=== PATIENT | male | born 1985 | race Caucasian/White ===

== ENCOUNTER 2025-04-30 13:50 | Observation (INO) | payer OTHER, SELFPAY ==
[2025-04-30] VITALS (14 sets, daily range): BP systolic 121–199; BP diastolic 73–128; BMI 46.4; BMI 44.8
--- NOTE | 2025-04-30 10:49 | ED.GENMED ---
History of Present Illness
General
Chief Complaint: Change in Mental Status
Time Seen by Provider: 04/30/25 10:39
Nursing documentation reviewed up to this point in time: agreed with
History of Present Illness
History of Present Illness:
39-year-old male presents to the ER for evaluation of weakness and visual disturbance which started 1 hour ago. Patient states that when he awakened this morning he felt a little bit off but was able to walk without any difficulty. He had no
headache. He states that while he was at work he started to notice blurred vision affecting his left eye. He also has a feeling of disorientation when he looks around or tries to move. He noted some weakness in his left hand. No reported recent
syncope or trauma. He is not on any blood thinners. He denies any prior history of CVA. He denies diplopia. He denies any recent illness. Patient's reports that he underwent chiropractic manipulation last night
Past History
Past History
ED Past Medical History: Hypothyroidism
ED Past Surgical History: Orthopedic
Social History
Tobacco: Former smoker
Alcohol: None
Drug: None
Personal:
Living: with family
Employment: Employed
Family History
Family History: Other (Noncontributory); Negative CAD or Sudden
Phy Exam
Physical Exam
Physical Exam:
Patient is awake, alert, obese, appears in no acute distress, mucous membranes moist, conjunctiva pink, head is normocephalic atraumatic, PERRL, EOMI, mucous membranes moist, tongue with mild right deviation, no facial asymmetry noted, patient noted
blurred vision in the left eye when looking leftward, no carotid bruits, heart regular rate and rhythm without murmurs recta, lungs are clear to auscultation without wheezes rales or rhonchi, abdomen soft nontender, extremities without edema, 2+ DP
pulses present symmetric bilateral feet, positive pronator drift on the left, difficulty with rapid alternating movements involving the left hand, no leg weakness appreciated, GCS is 15
Scores
NIH Stroke Score
Level of Consciousness: 0 - Alert
LOC Questions: 0-Answers both correctly
LOC Commands: 0-Performs both correctly
Best Horizontal Gaze: 0-Normal
Visual Duarte: 0=Normal, no visual loss
Facial Palsy: 0=Normal, symmetrical
Motor - Right Arm: 0=No drift 10 seconds
Motor - Left Arm: 1=Drift < 10 seconds
Motor - Right Le-No drift 5 seconds
Motor - Left Le-No drift 5 seconds
Limb Ataxia: 1-Present in one limb
Sensation: 0-Normal
Best Language: 1-Mild aphasia
Dysarthria: 0-Normal
Extinction and Inattention: 0-No abnormality
NIH Total Score:: 3
Course
Orders/Labs/Results
Orders:
Orders
04/30/25 Lunch
Regular
At Your Request: Full Participation
04/30/25 10:26
ECG [Electrocardiogram (*1)] Urgent
Reason for Study: Chest Pain
04/30/25 10:27
EKG- Treatment ONCE
04/30/25 10:44
CT BRAIN PERF STROKE ALERT Urgent
Comment:
Reason For Exam: L sided weakness
CT HEAD/NECK ANG STROKE ALERT Urgent
Comment:
Reason For Exam: l sided weakness, onset 1 hour ago
Bedside Glucose- Treatment ONCE
Cardiac Monitoring- Treatment ONCE
EKG- Treatment ONCE
IV Insert/Care/Rem.- Treatment PRN
0.9% Sodium Chloride 1000 ml [Nss] 1,000 ml IV BOLUS
Pulse Ox/cont/shift [RESP] Stat
Quantity: 1
04/30/25 10:46
Consult Neurology [NEUROLOGY CONSULT] Urgent
Consulting Provider: Ari Marquez
Was physician already notified: Yes
04/30/25 10:55
CT HEAD STROKE ALERT W/o Cont Stat
Comment:
Reason For Exam: dizziness
04/30/25 11:21
Ondansetron Injectable [Zofran] 4 mg IV NOW STA
04/30/25 11:22
Aspirin 325 mg PO NOW STA
04/30/25 11:26
Add On- LAB Routine
Tests Added?: lipid panel, hgb A1C, B12
Type+Screen Urgent
Alcohol Routine
Cardiovascular Evaluation Urgent
Comment: ADD ON
Complete Blood Count/With Diff Urgent
Comprehensive Metabolic Panel Urgent
Free T4 Urgent
Glycohemoglobin (HgbA1c) Urgent
LDL Cholesterol, Direct Urgent
PTT Urgent
Prothrombin Time Urgent
TSH Reflex To Free T4 Urgent
Troponin I Urgent
Vitamin B12 Urgent
Comment: ADD ON
04/30/25 11:49
ABO2 Urgent
BBK Wristband Number:
Associate notified that ABO2 has been ordered: [id number]
Date: 04/30/25
Time: 11:33
Creative Manager ID: [id number]
04/30/25 12:05
Urine Drug Abuse Screen Stat
Date Specimen was Collected: 04/30/25
Time Specimen was Collected: 12:03
04/30/25 13:24
Admit/Transfer Patient As Directed
Co-Sign Provider:
Level of Care: Observation services
Assign to:: Telemetry
Physician / Group: Hospitalist
Diagnosis: Dizziness, generalized weakness
Reason for Telemetry: Other
Other Reason for Telemetry: dizziness
Date to Stop Telemetry: 05/02/25
Time to Stop Telemetry: 11:00
Reason for Hospitalization: as above
PRN Pain Medication Management As Directed
May give lesser potent ordered pain med per pt: Yes
preference::
Protocol:: Medication orders for pain may be administered in a
manner that supports deferring to patient preference
when the pt is:
- Requesting an ordered lesser potent pain medication.
Least to most potent pain medications are defined
as: acetaminophen < NSAID < tramadol < opioids
(morphine, oxycodone, hydromorphone).
- Requesting a lesser dose of the same medication IF
ORDERED.
- Requesting a less intrusive route of administration
if both routes are prescribed by the provider (PO <
IV).
04/30/25 13:25
Code Status As Directed
Resuscitation Status: Full Code
04/30/25 13:31
MRI Brain [MR Brain W/o & With Contrast] Routine
Comment:
Reason For Exam: dizziness, generalized weakness.
Recent pill cam endoscopy?: No
04/30/25 13:50
Echo 2D MMode Color/Doppler Routine
Reason for Study: chest discomfort, chest tightness
05/02/25 11:00
DC Protocol for Telemetry ONCE
Abnormal Lab Results
04/30/25 04/30/25
10:49 11:26
Absolute Monos (auto) 0.8 H 10^3/uL
(0.1-0.6)
Triglycerides 466 H mg/dl
(10-149)
Total Cholesterol 216 H mg/dl
(50-199)
TSH (Reflex) 15.40 H uIU/ml
(0.47-4.68)
Free T4 0.59 L ng/dl
(0.78-2.19)
POC Glucose 102 H mg/dl
(70-99)
04/30/25 11:26
04/30/25 11:26
CBC, troponin and electrolytes without significant abnormality
Vital Signs
Initial and Last Documented VS:
Initial Vital Signs
Temp Pulse Resp BP Pulse Ox
98.8 F 66 17 121/84 99
04/30/25 10:32 04/30/25 10:32 04/30/25 10:32 04/30/25 10:32 04/30/25 10:32
Last Documented Vital Signs
Temp Pulse Resp BP Pulse Ox
98.8 F 67 15 146/98 99
04/30/25 10:32 04/30/25 14:30 04/30/25 14:30 04/30/25 14:00 04/30/25 10:56
Comment
Comment:
Stroke alert called at time of initial assessment. Labs and CT angio with perfusion are ordered. Neurology is present at bedside. Awaiting result
MDM/Problems Addressed
Differential Diagnosis Includes:
Differential diagnosis considered but not limited to stroke, intracranial hemorrhage, venous dural thrombosis, vertigo along with other etiologies considered
*Radiology
Radiology exam reviewed: radiology read reviewed (I reviewed no acute finding seen on noncontrast CT of the head with radiologist Jeanette)
*Pulse Oximetry
SaO2: 99
Oxygen Mode of Delivery: Room air
Patient hypoxic: no
*EKG
Interpreted by ED Provider?: Yes (I independently viewed and interpreted twelve-lead EKG showing normal sinus rhythm, rate 66, normal axis, normal intervals, this is a normal tracing, similar to prior from 06/09/2023)
*Medical Coding Manager Interpretation
Rate: normal (I independently reviewed rhythm strip showing normal sinus rhythm, no ectopy)
*Critical Care Note
Total Time (30-74mins, 75-104mins- exclusive of procedures): see critical care note
comment:
Critical care statement: A total of 30 minutes of critical care time was provided for this patient. This includes management of unstable vital signs, evaluation of the patient at bedside, reviewing the patient's pertinent medical records, discussion
with consultants, review of old EKGs and review of pertinent medical records. This time with separate from time utilized to perform the aforementioned documented procedures
Update Note
Update Note:
Patient was urgently evaluated by neurology, Dr Marquez. No acute findings seen on CTA or CTP- TNK not indicated. Aspirin and IV fluids ordered. Neurology recommendations were added into their consultation. I reviewed full patient presentation
with hospitalist to accept patient for admission
ED Attending Note
-
Portions of this chart may have been created with voice recognition software.� Occasional wrong word or��sound alike� substitutions may have occurred due to the inherent limitations of voice recognition software.
Discharge Plan
Departure
Patient Disposition: Admit
Date of Disposition: 04/30/25
Time of Disposition: 12:15
Presentation/result/management discussed w/ accepting MD/DO: Hospitalist
Discharge Problem:
Visual disturbance, Weakness
Interventions
Interventions:
*Risk Screen - Suicide Last Done: 04/30/25 10:34
*General Assessment Last Done: 04/30/25 10:34
*Neglect/Abuse Screening Last Done: 04/30/25 10:34
*ED COVID-19 Vaccine History Last Done: 04/30/25 10:34
ED- Pulmonary Assessment Last Done: 04/30/25 10:59
ED- Neurological Assessment Last Done: 04/30/25 10:56
ED- Cardiac Assessment Last Done: 04/30/25 11:14
ED Swallowing Screen Last Done: 04/30/25 11:40
--- NOTE | 2025-04-30 10:49 | CON.NEURO ---
Addendum entered and electronically signed by Ari Marquez MD 04/30/25 14:11:
Studies reviewed.
I have personally examined the patient. I reviewed and agree with the SHAVING MACHINE OPERATOR's Note.
My addenda:
Awake, alert, interactive. No acute distress.
Speech intact.
Follows 2-step requests w/o difficulty. No tremor.
Extra-ocular movements grossly intact.
Facial movements full and symmetric. Hearing intact to normal conversational volume.
Normal UE movements bilaterally.
Neck: full ROM.
Chest: no dyspnea
Heart: no JVD
Ext: (-) Clubbing, (-) Cyanosis, (-) Edema
IMPRESSIONS/RECOMMENDATIONS:
Abrupt onset of generalized weakness
Most likely secondary to combination of hypertension and thyroid dysfunction. Specifically patient is experiencing hypertensive encephalopathy
Goal of relative normotension
Outpatient endocrinology evaluation and treatment
Check blood work for additional metabolic abnormalities producing symptoms
No indication for antiplatelet agents at this time
D/W patient / family / nursing
All questions answered.
Will continue to follow as needed
Original Note:
Documented by User: Naomi Almonte NP 04/30/25 13:17
Neuro Assessment/Plan
Assessment
This is a 39-year-old male who presented to [facility] on 04/30/2025 for evaluation of weakness and visual disturbance.
Head CT: No acute intracranial abnormality.
Head and neck CT: Widely patent carotid arterial system bilaterally. No findings to suggest internal carotid artery or vertebral artery dissection bilaterally. Widely patent proximal intracranial arterial system bilaterally. Thyroid gland at least
top normal in size. Consider elective Thyroid Ultrasound for more complete evaluation.
Labs: LDL pending, Hgb A1C 5.2, TSH 15.4, T4 0.59
Plan
Impression: abrupt onset of generalized weakness and visual disturbance most likely due to hypertensive encephalopathy
-goal normotension
-TSH 15, recommend following up with endocrinology and consider resuming levothyroxine
-LDL pending, may consider starting statin if elevated
-recommend avoiding chiropractic manipulation of neck
All questions encouraged and answered, plan of care discussed with Dr. Marquez, hospitalist, nurse, patient and
Consultation
Order
Date of Consultation: 04/30/25
Requesting Provider: hospitalist
Reason for Consult: stroke alert
Subjective/Objective
Subjective Data
Date of Service: April 30, 2025
This is a 39-year-old male who presented to [facility] on 04/30/2025 for evaluation of weakness and visual disturbance. Patient states that when he awakened this morning he felt a little bit off had some chest discomfort and left upper extremity pain but
was able to walk without any difficulty. He had no headache. He states that while he was at work he started to notice blurred vision affecting his left eye only around 10 am. He also has a feeling of disorientation when he looks around or tries to
move and 'feels drunk.' He noted some weakness and clumsiness in his left hand. No reported recent syncope or head trauma. He is not on any blood thinners. He denies any prior history of CVA/TIA. He denies diplopia. He denies any recent
illness. Patient's reports that he underwent chiropractic manipulation yesterday. He was a stroke alert in the ED. Head CT with no acute intracranial abnormality. Head and neck CTA with widely patent carotid arterial system bilaterally. No
findings to suggest internal carotid artery or vertebral artery dissection bilaterally. Widely patent proximal intracranial arterial system bilaterally. Current NIHSS 1 for mild dysarthria. Not a TNK candidate due to low NIHSS score and no LVO. In
the ED patient hypertensive. TSH 15.4.
Objective Data
Vital Signs
Temp Pulse Resp BP Pulse Ox
98.8 F 66 17 121/84 99
04/30/25 10:32 04/30/25 10:32 04/30/25 10:32 04/30/25 10:32 04/30/25 10:32
Patient Allergies
No Known Allergies Allergy (Verified 04/30/25 10:33)
CVA Assessment
Onset of Stroke Symptoms
Onset of symptoms known: Yes
Date of onset of symptoms: 04/30/25
Time of onset of symptoms: 10:00
Time pt last seen normal is known: Yes
Date last time pt seen normal: 04/30/25
Time last time pt seen normal: 10:00
NIH Stroke Score
Level of Consciousness: 0 - Alert
LOC Questions: 0-Answers both correctly
LOC Commands: 0-Performs both correctly
Best Horizontal Gaze: 0-Normal
Visual Duarte: 0=Normal, no visual loss
Facial Palsy: 0=Normal, symmetrical
Motor - Right Arm: 0=No drift 10 seconds
Motor - Left Arm: 0=No drift 10 seconds
Motor - Right Le-No drift 5 seconds
Motor - Left Le-No drift 5 seconds
Limb Ataxia: 0-Absent
Sensation: 0-Normal
Best Language: 0-No aphasia
Dysarthria: 1-Mild slurring
Extinction and Inattention: 0-No abnormality
NIH Total Score:: 1
Tenecteplase Contraindications
Inclusion and Exclusion criteria reviewed: Yes
IAT Contraindications: NIHSS < 6
Modified [place] Score (MRS)
-
Modified [place] Scale (mRS): No significant disability. Able to carry out usual activities.
Score: 1
Review of Systems
-
History Source: Patient
Constitutional: No Symptoms
EENT: Blurry Vision
Respiratory: No Symptoms
Cardiac: No Symptoms
Abdomen/GI: No Symptoms
Genitourinary: No Symptoms
Musculoskeletal: No Symptoms
Skin: No Symptoms
Neuro: Dizzy, Weakness, Ataxia and Speech Problem
Physical Exam
-
General: Comfortable and Appears Stated Age
HEENT: Normocephalic, Atraumatic and Anicteric
Neck: Full Range of Motion
Cardiac: No JVD
Skin: Unremarkable
Extremities: No Clubbing, No Cyanosis and No Edema
Psych: Unremarkable
Extended Neurological Exam
Mood & Affect: Mood Unremarkable
Attention Span & Concentration: Awake, Alert, Interactive and No Difficulty with 2 Step Request
Memory: Unremarkable
Tremor: Hand Tremor Absent and Head Tremor Absent
Involuntary Movement: None
Speech: Dysarthric
Cranial Nerve II: Left Eye: Visual Duarte Intact
Cranial Nerve II: Right Eye: Visual Duarte Intact
Cranial Nerves III, IV, : Extraocular Movement: Extraocular Movement Full in all Directions
Cranial Nerve VII: Facial Symmetry: Normal Facial Symmetry
Cranial Nerve VIII: Hearing: Unremarkable Hearing to Normal Conversational Volume
Muscle Strength, Overall: Full Throughout
Pronator Drift: No Drift in Upper Extremities and No Drift in Lower Extremities
Coordination: [id number] Testing Unremarkable and Reaches for Objects without Difficulty
Medications
-
Home Medications
�Medication �Instructions �Recorded
meclizine 25 mg tablet 25 mg PO Q8HPRN PRN nausea or 04/06/18
vertigo #20 tabs
erythromycin 5 mg/gram (0.5 %) eye 1 applic OPHTHALMIC BID #1 mL 04/30/21
ointment
ibuprofen 600 mg tablet 600 mg PO Q6HPRN PRN pain #20 tabs 04/30/21
Past History
Past History
ED Past Medical History: Hypothyroidism
ED Past Surgical History: Orthopedic
Family/Social History
Tobacco: Former smoker
Alcohol: None
Drug: None
Personal:
Living: with family
Employment: Employed
Family History: Other (Noncontributory); Negative CAD or Sudden

Documented by User: Ari Marquez MD 04/30/25 13:49
CVA Assessment
NIH Stroke Score
NIH Total Score:: 1
Modified [place] Score (MRS)
-
Score: 1
[2025-04-30 10:51] LABS: Glucose - Point of Care 102 mg/dl (70-99)
[2025-04-30 11:34] LABS: Hematocrit 45.8 % (39.0-52.0); Hemoglobin 16.0 g/dL (13.0-18.0); Mean Corp Hgb Conc. 34.9 g/dL (33.0-37.0); Mean Corpuscular Volume 83.9 fL (80.0-94.0); Nucleated Red Blood Cells % 0 % (-); Platelet Count 224 10^3/uL (130-400); Red Cell Dist. Width 12.4 % (11.5-14.5)
[2025-04-30] MEDS: NSS 1000 IV (11:37)
[2025-04-30] MEDS: ZOFRAN 4 MG IV (11:42)
[2025-04-30] MEDS: ASPIRIN 325 MG PO (11:43)
[2025-04-30 11:47] LABS: APTT 25.0 Sec (23.4-35.0); INR 0.90; PT 12.4 Sec (11.4-14.6)
[2025-04-30 11:50] LABS: ALT (SGPT) 24 U/L (0-50); AST (SGOT) 21 U/L (17-59); Albumin 4.9 g/dl (3.5-5.0); Alkaline Phosphatase 49 U/L (38-126); Blood Urea Nitrogen 13 mg/dl (9-20); Calcium 9.9 mg/dl (8.4-10.2); Carbon Dioxide 24 mmol/L (22-30); Chloride 104 mmol/L (98-107); Estimated Creatinine Clearance > 125 ml/min; Glucose 98 mg/dl (70-99); Potassium 4.5 mmol/L (3.5-5.1); Sodium 139 mmol/L (135-145); Total Protein 7.6 g/dl (6.3-8.2); eGFR > 60.00
[2025-04-30 12:04] LABS: Troponin I < 0.012 ng/ml
[2025-04-30 12:28] LABS: HDL Cholesterol 39 mg/dl
[2025-04-30 12:33] LABS: Glycohemoglobin (HgbA1c) 5.2 % (4.0-5.6)
--- NOTE | 2025-04-30 13:07 | HPS.HSE ---
Addendum entered and electronically signed by Agnieszka Del Rosario MD 04/30/25 13:44:
I personally performed a history and physical exam of the patient and discussed management with the resident. I reviewed the resident's note and agree with the documented findings and plan of care HPI/CC except changes in my documentation
39-year-old male with visual disturbance and weakness. He felt a little off when he woke up. No headache was at work noticed blurry vision also noted some weakness of the left hand he underwent chiropractic manipulation last night. He also had
some discomfort in the left arm and some chest tightness last night
CTA head and neck-widely patent carotid artery no evidence of internal carotid or vertebral artery dissection bilaterally. Widely patent proximal ICA. Thyroid gland top normal size
EKG-sinus rhythm no ischemia
CVS: S1-S2 normal
Chest: CTA B/L
Abdomen: Soft, NT / Bowel sounds present
Extremities: No edema, normal pulses
CHANGE HOUSE ATTENDANT: Pupils are equal and reactive no nystagmus, no facial droop, 5 x 5 strength upper extremities bilaterally
Chronic foot drop on the left, decreased muscle mass on the left calf-chronic from previous injury
# Visual disturbance, left arm numbness
Completely resolved
Admit to observation
Neurology evaluated the patient
Possibly secondary to chiropractor adjustment but with risk factors need to rule out stroke
Neurochecks, NIH scale
MRI of the brain with and without contrast to rule out stroke/demyelination
Check a lipid panel
PT eval
# Left arm pain with some chest tightness last night-check troponins EKG without any ischemia. Check echo
# Elevated TSH-T4 pending
Thyroid gland top normal size
Ultrasound of the thyroid thyroid as outpatient. Needs instructions at discharge..
# Asthma
# Obesity with BMI 46-discussed about weight loss
# Ex-smoker
# DVT prophylaxis-Lovenox
# Full code
Patient was hesitant to take thyroid medicines as it caused a lot of side effects for him. We discussed that maybe the levels were too high at that time. He is willing to try a dose
Detailed discussion with patient's at bedside
Part of this note was created using voice recognition system. Occasional wrong word or��sound alike� substitutions may have inadvertently occurred due to the inherent limitations of voice recognition software. If noted kindly bring it to my
attention for correction.
Original Note:
Family Physician
-
Family Physician: Charley Boles
Chief Complaint
-
Vision changes
History of Present Illness
This is a 39-year-old male past medical history of hypothyroidism, presents to ED for evaluation of weakness and visual disturbances started 1 hour prior to presentation. The patient reports that this morning, he woke up and felt a 'little bit
off'. He went to work as usual, and while at work, he notes the vision of his left eye became blurry. He denied total Vision loss at any point, denied eye pain. He reports an episode of dizziness, and mild nausea. In addition, patient reports
generalized weakness. He states while he was trying to stand from a sitting position, his knees gave out. He was able to stand appropriately afterwards, but noticed his left side was weaker than his right side. He reports weakness more in the
arms and legs. Admits to tingling sensation in the left fingers. He denies jerking, twitching, loss of consciousness. Denies trouble swallowing. Denies facial droop, slurred speech. The patient states he underwent chiropractic manipulation last
night where his head is moved around multiple times.
Upon presentation to the ED, BP 128/84, pulse 66, respiratory rate 17, temperature 98.8, O2 sats 99% on room air. Labs were unremarkable except a TSH of 15.40. He was evaluated with a head CT, which was unremarkable. He was administered 325 mg
aspirin in the ED.
Medical History
Past Medical History
Past Medical History: Reports Hypothyroidism
Past Surgical History: Reports None
Social History
Tobacco: Non-smoker
Alcohol: None
Drug: None
Personal:
Living: With Family
Employment: Employed
Family History
Family History: Not pertinent
Allergies / Home Medications
Allergies reflects when Allergies were last updated in [facility].
Home Medications with original date entered in [facility]
Allergy/Medication List:
Allergies
Allergy/AdvReac Type Severity Reaction Status Date / Time
No Known Allergies Allergy Verified 04/30/25 10:33
Home Medications
No Meds [No Current Medications] 04/30/25
Review of Systems
-
A 12 point ROS was completed and negative except as noted: Yes
Constitutional: Reports Other (Review of system completed and negative except for those mentioned in HPI)
Physical Exam
Vital Signs
Vital Signs
Temp Pulse Resp BP Pulse Ox
98.8 F 57 17 143/102 99
04/30/25 10:32 04/30/25 13:00 04/30/25 13:00 04/30/25 13:00 04/30/25 10:56
Physical Exam
General: Well Developed, Well Nourished and No Apparent Distress
HEENT: NormoCephalic and Anicteric
Respiratory: Clear; No Wheezes, Rales or Rhonchi
Cardiac: S1/S2 and Regular Rhythm
GI: Soft, Non Tender, Non Distended and Normal Bowel Sounds
Musculoskeletal: No Clubbing, No Cyanosis, No Edema and Other (5/5 muscular strength bilateral upper and lower extremity)
Skin: Warm
Neuro: Awake, Alert, Oriented, AO x 3 and Nonfocal/grossly intact; No Slurred Speech or Facial Droop
Psych: Calm
Laboratory Results
-
04/30/25 11:26
04/30/25 11:26
Laboratory Results
PT 12.4 Sec (11.4-14.6) 04/30/25 11:26
INR 0.90 04/30/25 11:26
APTT 25.0 Sec (23.4-35.0) 04/30/25 11:
Total Bilirubin 0.5 mg/dl (0.2-1.3) 04/30/25 11:
AST 21 U/L (17-59) 04/30/25 11:
ALT 24 U/L (0-50) 04/30/25 11:
Alkaline Phosphatase 49 U/L (38-126) 04/30/25 11:
Troponin I < 0.012 ng/ml 04/30/25 11:
Impression/Plan
-
Assessment/plan
#Acute neurological symptoms - Dizziness, Generalized weakness
-concerns for TIA vs Stroke
-Underwent chiropractic manipulation last night, also concern for vertebral artery dissection
-CT head with no acute intracranial abnormality
-CTA head and neck- Widely patent carotid arterial system bilaterally. No findings to suggest internal carotid artery or vertebral artery dissection bilaterally.
-Administered aspirin 325 mg in the ED
-Neurochecks
-MRI brain with and without contrast
-Check lipids, A1c, B12
-Drug screen pending
-Start aspirin 81 mg from tomorrow
-Neurology consulted
#Hypothyroidism
-TSH 15.40, T4 0.59
-Will start patient on levothyroxine 25mg PO daily
CODE STATUS full code
DVT prophylaxis SCDs
[2025-04-30 13:56] LABS: LDL Cholesterol, Direct 101 mg/dl
--- NOTE | 2025-04-30 14:36 | CM ---
CM reviewed chart and met with pt and bedside in ED. Lives with in 2 story home, 2 [address], first floor half BA. BR/full BA second floor. Independent in ADLs, personal care and ambulation at baseline. NO DME.
Confirms prescription coverage.
OBS form reviewed and signed. Copy given to pt.
PCP: Charley Boles
Pharmacy: [facility]
Anticipate discharge home, no needs
[2025-04-30] MEDS: ATIVAN 1 MG PO (15:13)
[2025-04-30 16:14] LABS: Vitamin B12 225 pg/ml (239-931)
--- NOTE | 2025-04-30 16:20 | EDRN ---
Gideon returned from MRI very upset and anxious, pt was not able to complete MRI as he had a panic attack once placed in MRI and cage placed over his head. Pt was given ativan before he went to MRI however this RN is not sure that the medication
had enough time to take effect. After speaking with pt, he is not willing to try MRI again, although he is open to trying an open MRI with medication given. I told him that I will need to speak with MRI and see if that is something we have here in
the hospital and also his care team.
--- NOTE | 2025-04-30 16:53 | EDRN ---
Jamie sent to ordering provider of MRI and also Dr Del Rosario about the pts experience and inability to complete MRI testing, asked for updated plan of care.
[2025-04-30] MEDS: LOVENOX 40 MG SC (17:59)
[2025-04-30 19:11] LABS: Troponin I < 0.012 ng/ml
[2025-04-30] MEDS: MELATONIN 3 MG PO (21:40)
[2025-05-01 01:00] LABS: Troponin I < 0.012 ng/ml
[2025-05-01 03:32] VITALS: BP 124/79
[2025-05-01] MEDS: SYNTHROID 25 MCG PO (05:54)
[2025-05-01 07:10] LABS: Hematocrit 43.3 % (39.0-52.0); Hemoglobin 14.8 g/dL (13.0-18.0); Mean Corp Hgb Conc. 34.2 g/dL (33.0-37.0); Mean Corpuscular Volume 84.9 fL (80.0-94.0); Platelet Count 183 10^3/uL (130-400); Red Cell Dist. Width 12.3 % (11.5-14.5)
[2025-05-01 07:30] VITALS: BP 146/91
[2025-05-01] MEDS: LOW STRENGTH ASPIRIN 81 MG PO (07:33)
[2025-05-01 08:13] LABS: Blood Urea Nitrogen 16 mg/dl (9-20); Calcium 8.9 mg/dl (8.4-10.2); Carbon Dioxide 23 mmol/L (22-30); Chloride 107 mmol/L (98-107); Estimated Creatinine Clearance > 125 ml/min; Glucose 102 mg/dl (70-99); Potassium 4.5 mmol/L (3.5-5.1); Sodium 139 mmol/L (135-145); eGFR > 60.00
--- NOTE | 2025-05-01 08:57 | W.PN.HOSP.TC ---
Today's Communication/Plan
-
discharge home today.
Assessment / Plan
Assessment / Plan
Impression:
This is a 39-year-old male past medical history of hypothyroidism, presents to ED for evaluation of weakness and visual disturbances started 1 hour prior to presentation. The patient reports that this morning, he woke up and felt a 'little bit
off'. He went to work as usual, and while at work, he notes the vision of his left eye became blurry. He denied total Vision loss at any point, denied eye pain. He reports an episode of dizziness, and mild nausea. In addition, patient reports
generalized weakness. He states while he was trying to stand from a sitting position, his knees gave out. He was able to stand appropriately afterwards, but noticed his left side was weaker than his right side. He reports weakness more in the
arms and legs. Admits to tingling sensation in the left fingers. He denies jerking, twitching, loss of consciousness. Denies trouble swallowing. Denies facial droop, slurred speech. The patient states he underwent chiropractic manipulation last
night where his head is moved around multiple times.
Upon presentation to the ED, BP 128/84, pulse 66, respiratory rate 17, temperature 98.8, O2 sats 99% on room air. Labs were unremarkable except a TSH of 15.40. He was evaluated with a head CT, which was unremarkable. He was administered 325 mg
aspirin in the ED.
05/01
Echo cardiogram showed:
1. Normal left ventricular size, wall thickness and systolic function. No regional wall motion abnormalities are seen.
2. Ejection fraction is 55-60% by Waller's method of discs.
3. No significant valve disease.
4. No prior study for comparison.
Patient is claustrophobic and would like to have MRI done as outpatient at [facility], MRI prescription provided to the patient.
Assessment/plan:
#Acute neurological symptoms - Dizziness, Generalized weakness
-concerns for TIA vs Stroke
-Underwent chiropractic manipulation last night, also concern for vertebral artery dissection
-CT head with no acute intracranial abnormality
-CTA head and neck- Widely patent carotid arterial system bilaterally. No findings to suggest internal carotid artery or vertebral artery dissection bilaterally.
-Administered aspirin 325 mg in the ED
-Neurochecks
-MRI brain with and without contrast
-Check lipids, A1c, B12
-Drug screen pending
-Start aspirin 81 mg from tomorrow
-Neurology consulted
05/01
Echo cardiogram showed:
1. Normal left ventricular size, wall thickness and systolic function. No regional wall motion abnormalities are seen.
2. Ejection fraction is 55-60% by Waller's method of discs.
3. No significant valve disease.
4. No prior study for comparison.
Patient is claustrophobic and would like to have [facility], MRI prescription provided to the patien
#Hypothyroidism
-TSH 15.40, T4 0.59
-Will start patient on levothyroxine 25mg PO [id number] with endocrine as OP.
CODE STATUS: Full code
DVT prophylaxis: Lovenox
Diet: Regular diet
Disposition: discharge home today.
Total time spent on today's encounter was 55 minutes which included time spent in counseling the patient/family regarding diagnosis and treatment plan as listed above, goals of care, and symptom management. Case was discussed with nursing staff,
specialists, and care coordinators/case management. All labs and imaging personally reviewed by me. Remainder the time spent in detailed review of previous records, lab data, imaging, and other medical provider documentation.
Anticipated Discharge: Today
Subjective/Interval History
-
Date of Service: May 01, 2025
Patient seen and examined at bedside, denies any chest pain or shortness of breath, no abdominal pain, no nausea, no vomiting, no diarrhea or constipation.
Objective Data
-
Labs:
Laboratory Results
05/01/25
06:22
WBC 8.6
Hgb 14.8
Hct 43.3
Plt Count 183
Sodium 139
Potassium 4.5
Chloride 107
Carbon Dioxide 23
BUN 16
Creatinine 0.8
Glucose 102 H
Calcium 8.9
Vital Signs:
Vital Signs
Temp Pulse Resp BP Pulse Ox
97.6 F 89 19 124/79 96
05/01/25 03:32 05/01/25 03:32 05/01/25 03:32 05/01/25 03:32 05/01/25 03:32
I&O
04/30/25 05/01/25 05/02/25
06:59 06:59 06:59
Intake Total 0 / 0
Output Total 650 / 650
Balance -650 / -650
Physical Exam
-
General: Well Developed, Well Nourished, No Apparent Distress and Comfortable
HEENT: Normocephalic, Atraumatic, Moist Mucous Membranes, No Ptosis, PERRLA and Nose Appears Normal
Respiratory: Clear to Auscultation and Non Labored Respirations
Cardiac: Regular Rhythm and S1/S2
Breast: Deferred by me
GI: Soft, Nontender, Nondistended and Normal Bowel Sounds
Genito-urinary: No Costovertebral Tender
Musculoskeletal: No Clubbing, No Cyanosis and No Edema
Skin: Warm
Neuro: Awake, Alert, Oriented, AO x 3 and No Motor Deficits
Psych: Calm
Data Reviewed
-
Diagnostic Radiology: Image personally visualized and interpreted and Report Reviewed by me
CT Scan: Image personally visualized and interpreted and Report Reviewed by me
Ultrasound: Image personally visualized and interpreted and Report Reviewed by me
MRI: Image personally visualized and interpreted and Report Reviewed by me
Medical Tests (Nuc Med, Echo etc): Image personally visualized and interpreted and Report Reviewed by me
Labs: Labs Reviewed by me
Old Records: Reviewed
[2025-05-01 09:33] VITALS: BP 155/88; PULSE 73; O2SAT 95
--- NOTE | 2025-05-01 09:45 | PTOTSP ---
pt currently requires no assistance to complete simple ADLs, functional transfers, ambulation. pt demonstrates ability to complete tasks with good insight, safety. no acute OT needs identified at this time, will sign off.
[2025-05-01 09:49] VITALS: BP 155/88; PULSE 71; O2SAT 95
--- NOTE | 2025-05-01 09:56 | PTOTSP ---
Pt is independent with ambulation without need for an assistive device. Has h/o old left foot drop for which he compensates well and has a brace he sometimes uses. No acute PT needs were identified. PT will sign off.
[2025-05-01 11:12] VITALS: BP 142/81
--- NOTE | 2025-05-01 12:14 | W.DCSUMMARY ---
Discharge Summary
Discharge Data
Date of Admission: 04/30/25
Date of Discharge: 05/01/25
Total time spent discharging patient (in min): 40
-
Pending Results: No
Hospital Course
Hospital course
This is a 39-year-old male past medical history of hypothyroidism, presents to ED for evaluation of weakness and visual disturbances started 1 hour prior to presentation. The patient reports that this morning, he woke up and felt a 'little bit
off'. He went to work as usual, and while at work, he notes the vision of his left eye became blurry. He denied total Vision loss at any point, denied eye pain. He reports an episode of dizziness, and mild nausea. In addition, patient reports
generalized weakness. He states while he was trying to stand from a sitting position, his knees gave out. He was able to stand appropriately afterwards, but noticed his left side was weaker than his right side. He reports weakness more in the
arms and legs. Admits to tingling sensation in the left fingers. He denies jerking, twitching, loss of consciousness. Denies trouble swallowing. Denies facial droop, slurred speech. The patient states he underwent chiropractic manipulation last
night where his head is moved around multiple times.
Upon presentation to the ED, BP 128/84, pulse 66, respiratory rate 17, temperature 98.8, O2 sats 99% on room air. Labs were unremarkable except a TSH of 15.40. He was evaluated with a head CT, which was unremarkable. He was administered 325 mg
aspirin in the ED.
05/01
Echo cardiogram showed:
1. Normal left ventricular size, wall thickness and systolic function. No regional wall motion abnormalities are seen.
2. Ejection fraction is 55-60% by Waller's method of discs.
3. No significant valve disease.
4. No prior study for comparison.
Patient is claustrophobic and would like to have MRI done as outpatient at [facility], MRI prescription provided to the patient.
During hospitalization patient was treated from the following
Acute neurological symptoms - Dizziness, Generalized weakness
-concerns for TIA vs Stroke
-Underwent chiropractic manipulation last night, also concern for vertebral artery dissection
-CT head with no acute intracranial abnormality
-CTA head and neck- Widely patent carotid arterial system bilaterally. No findings to suggest internal carotid artery or vertebral artery dissection bilaterally.
-Administered aspirin 325 mg in the ED
-Neurochecks
-MRI brain with and without contrast
-Check lipids, A1c, B12
-Drug screen pending
-Start aspirin 81 mg from tomorrow
-Neurology consulted
05/01
Echo cardiogram showed:
1. Normal left ventricular size, wall thickness and systolic function. No regional wall motion abnormalities are seen.
2. Ejection fraction is 55-60% by Waller's method of discs.
3. No significant valve disease.
4. No prior study for comparison.
Patient is claustrophobic and would like to have MRI done as outpatient at [facility], MRI prescription provided to the patien
#Hypothyroidism
-TSH 15.40, T4 0.59
-Will start patient on levothyroxine 25mg PO [id number] with endocrine as OP.
CODE STATUS: Full code
DVT prophylaxis: Lovenox
Diet: Regular diet
Disposition: discharge home today.
Total time spent on today's encounter was 40 minutes which included time spent in counseling the patient/family regarding diagnosis and treatment plan as listed above, goals of care, and symptom management. Case was discussed with nursing staff,
specialists, and care coordinators/case management. All labs and imaging personally reviewed by me. Remainder the time spent in detailed review of previous records, lab data, imaging, and other medical provider documentation.
Anticipated Discharge: Today
Discharge Plan
-
Patient Disposition: Home (Routine Discharge)
Discharge Diagnosis/Procedures: Visual disturbance, left arm numbness
Diet: As tolerated and Regular
Activity: No restrictions
Referrals:
Adia Logan MD [Consulting Staff, Endocrinology] - in two to three weeks
Ari Marquez MD [Active, Neurology] - in three to four weeks
Charley Boles DO [Family Provider, Family Practice]
Prescriptions:
New
levothyroxine 25 mcg Tablet
25 mcg PO DAILY @ 0600 Qty: 30 0RF
(DME) MRI Brain w/wo contrast
See Rx Instructions .Route .MEDSUPPLY Qty: 1 0RF
Rx Instructions:
Diagnosis:
Numbness R/O stroke vs MS
Discharge Orders:
Discharge Patient (As Directed); Ordered 05/01/25
Ordered By: Thais Palumbo
Discharge Date and Time
Print Language: K[place]ILI
--- NOTE | 2025-05-01 12:41 | CM ---
MD entered order for discharge today .
Spoke with patient he said that he agrees with discharge today to Home .
His Delaney will drive him home.
PT indicated no skilled needs. Offered VN he decline dneed.
PLAN Home no needs
== END 2025-05-01 13:28 | disposition home or self-care (01) ==
LOC: 4 EAST ACU 13:50
PROVIDERS: Student in an Organized Health Care Education/Training Program; ADMITTING PHYSICIAN Hospitalist; ATTENDING PHYSICIAN General Practice; CONSULT PHYSICIAN Psychiatry & Neurology Neurology; EMERGENCY PHYSICIAN Emergency Medicine; FAMILY PHYSICIAN Family Medicine
DX: H53.8 Other visual disturbances (principal); R53.1 Weakness; R20.0 Anesthesia of skin; R41.0 Disorientation, unspecified; E03.9 Hypothyroidism, unspecified; R42 Dizziness and giddiness; Z68.42 Body mass index [BMI] 45.0-49.9, adult; R07.89 Other chest pain; I10 Essential (primary) hypertension; M79.602 Pain in left arm; J45.909 Unspecified asthma, uncomplicated; E66.9 Obesity, unspecified; Z87.891 Personal history of nicotine dependence; F40.240 Claustrophobia
CPT/HCPCS: 0042T; 70450; 70496; 70498; 80048; 80053; 80061; 80306; 82077; 82607; 82962; 83036; 83721; 84439; 84443; 84484; 85025; 85027; 85610; 85730; 86850; 86900; 86901; 93005; 93306; 96361; 96374; 97162; 97166; 99291; G0378; Q9950; Q9967